=== PATIENT | female | born 1970 | race African-American/Black ===

== ENCOUNTER → 2017-05-13 | Outpatient (CLI) | payer OTHER | LOC: COL.PUL 12:56 | DX: R06.02 Shortness of breath (principal) | CPT/HCPCS: J7674 ==

== ENCOUNTER → 2018-08-02 | Outpatient (CLI) | payer OTHER | LOC: COL.PUL 12:40 | DX: R06.02 Shortness of breath (principal) | CPT/HCPCS: J7674 ==